=== PATIENT | female | born 1985 | race Caucasian/White ===

== ENCOUNTER → 2016-07-02 | Emergency (ER) | payer OTHER ==
[~2016-07-02] MED LIST: IBUP-232 PO
== END | disposition home or self-care (01) ==
LOC: HOBED 19:55 → H2EB 19:55 → UNDOADMIN 19:55 → EDSTATUS 20:19
DX: O26.93 Pregnancy related conditions, unspecified, third trimester (principal); Z3A.39 39 weeks gestation of pregnancy
CPT/HCPCS: 99283

== ENCOUNTER 2016-07-03 08:27 | Inpatient (IN) | payer OTHER ==
[2016-07-03] VITALS (138 sets, daily range): BP systolic 114–150; BP diastolic 64–96; PULSE 67–143; RESP 18–20; TEMP 98–98.4
[2016-07-03] MEDS ORDERED: LACTATED RINGER'S 1000 ML INJ 1,000 ML IV PRN (09:06)
[2016-07-03] MEDS ORDERED: LIDOCAINE HCL 1% 50 ML VIAL INFIL PRN (09:15)
[2016-07-03] MEDS ORDERED: ONDANSETRON HCL 4 MG/2 ML VIAL IV PRN (09:15)
[2016-07-03] MEDS ORDERED: LIDOCAINE HCL 1% 50 ML VIAL I-DERMAL PRN (09:15)
[2016-07-03] MEDS ORDERED: OXYTOCIN 30 UNITS-500ML PREMIX 500 ML IV SCH (09:15)
[2016-07-03] MEDS ORDERED: OXYTOCIN 30 UNITS-500ML PREMIX 500 ML IV ONE (09:15)
[2016-07-03] MEDS ORDERED: MINERAL OIL 10 ML VIAL TOPICAL PRN (09:15)
[2016-07-03] MEDS ORDERED: CITRIC ACID-SODIUM CITRATE LIQ 30 ML UDC PO SCH (09:15)
[2016-07-03] MEDS ORDERED: SODIUM CHLORID 0.9% 500 ML INJ 500 ML IV PRN (09:15)
[2016-07-03] MEDS ORDERED: SODIUM CHLOR 0.9% 1000 ML INJ 1,000 ML IV PRN (09:26)
[2016-07-03 09:36] LABS: AUTOMATED NEUTROPHIL # 8.5 TH/MM3 (1.8-7.7); BASOPHIL % 0.3 % (0.0-2.0); EOSINOPHIL # 0.2 TH/MM3 (0-0.4); EOSINOPHIL % 1.4 % (0.0-4.0); HEMATOCRIT 33.7 % (35.0-46.0); HEMO FLAGS DIFF FINAL; LYMPH % 20.5 % (9.0-44.0); LYMPHOCYTE # 2.5 TH/MM3 (1.0-4.8); MEAN CELL VOLUME 91.1 FL (80.0-100.0); MEAN CORPUSCULAR HEMOGLOBIN 31.3 PG (27.0-34.0); MEAN CORPUSCULAR HGB CONC 34.4 % (32.0-36.0); MONO % 7.2 % (0.0-8.0); NEUT % 70.6 % (16.0-70.0); PLATELET COUNT 212 TH/MM3 (150-450); RED CELL DISTRIBUTION WIDTH 12.9 % (11.6-17.2)
[2016-07-03 09:39] LABS: BACTERIA, URINE RARE /hpf; BLOOD, URINE NEG (NEG); COMMENT (UR) CULT NOT INDICATED; CULTURE IF INDICATED CULT NOT INDICATED; GLUCOSE,URINE NEG (NEG); KETONE, URINE NEG (NEG); MUCUS URINE FEW /lpf (OCC); NITRITE,URINE NEG (NEG); PH, URINE 5.5 (5.0-8.5); SQUAMOUS EPITHELIAL CELL URINE 1 /hpf (0-5); URINE COLOR LIGHT-YELLOW (YELLW/STRAW)
[2016-07-03] MEDS: LACTATED RINGER'S 1000 ML INJ 1,000 ML IV SCH (10:08)
[2016-07-03 10:12] LABS: ALKALINE PHOSPHATASE 117 U/L (45-117); ALT (GPT) 15 U/L (10-53); ANION GAP 10 MEQ/L (5-15); AST (GOT) 16 U/L (15-37); BLOOD UREA NITROGEN 10 MG/DL (7-18); CHLORIDE 105 MEQ/L (98-107); GLOMERULAR FILTRATION RATE 85 ML/MIN (>89); POTASSIUM 3.8 MEQ/L (3.5-5.1); SODIUM (NA) 138 MEQ/L (136-145); TOTAL BILIRUBIN ADULT 0.2 MG/DL (0.2-1.0)
--- NOTE | 2016-07-03 12:00 | PD.LABORPN ---
Subjective Subjective comfortable on the birthing ball clear fluid (AROM by Dr. Helm) Objective Vital Signs Vital Signs Date Time Temp Pulse Resp B/P Pulse Ox O2 Delivery O2 Flow Rate FiO2 07/03/16 11:42 78 145/96 07/03/16 11:40 75 07/03/16 11:35 77 07/03/16 11:30 69 07/03/16 11:20 75 07/03/16 11:10 71 07/03/16 11:07 98.1 07/03/16 11:05 71 07/03/16 11:04 71 140/92 07/03/16 11:00 69 07/03/16 10:55 67 07/03/16 10:50 67 07/03/16 10:45 95 07/03/16 10:35 69 07/03/16 10:30 71 07/03/16 10:25 68 07/03/16 10:20 75 07/03/16 10:15 78 07/03/16 10:10 71 07/03/16 10:09 73 132/90 07/03/16 10:05 143 07/03/16 10:00 71 07/03/16 09:55 73 07/03/16 09:50 79 07/03/16 09:45 74 07/03/16 09:40 76 07/03/16 09:35 80 07/03/16 09:32 78 128/87 07/03/16 09:30 83 07/03/16 09:25 83 07/03/16 09:24 98.4 07/03/16 09:20 78 07/03/16 09:15 78 07/03/16 09:10 86 07/03/16 09:05 87 07/03/16 09:00 85 Objective 80/3/-1 Category 1 EFW 7 1/2 pelvis clinically adequate Assessment/Plan Assessment and Plan continue being mobile until desires epidural anticipate Bernie Rowan MD Jul 03, 2016 12:00
--- NOTE | 2016-07-03 12:06 | HHI.HP ---
HPI Chief Complaint 39+ week IUP HIP mild Date Seen: Jul 03, 2016 Time Seen: 12:01 Travel History International Travel<30 Days: No Contact w/Intl Traveler<30Days: No Known Affected Area: No History of Present Illness HPI 30 yo mwf G1 Po at 39 2/7 weeks EGA with mildly elevated BPs of 140s/90s. No proteint today. trace yesterday No LAM, N , V , bluured vision or RUQT. GFM. PNC with HOGA beggining at 7 weeks. 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 Medical History: Denies Significant Hx Past Surgical History Surgical History: No Previous Surgery Family History Family History: Negative Social History Alcohol Use: No Tobacco Use: No Substance Abuse: No Allergies-Medications (Allergen,Severity, Reaction): Coded Allergies: No Known Allergies (Unverified , 07/03/16) Review of Systems General / Constitutional: No: Fever, Weight Gain, Chills, Other Physical Exam Vital Signs Date Time Temp Pulse Resp B/P Pulse Ox O2 Delivery O2 Flow Rate FiO2 07/03/16 11:42 78 145/96 07/03/16 11:40 75 07/03/16 11:35 77 07/03/16 11:30 69 07/03/16 11:20 75 07/03/16 11:10 71 07/03/16 11:07 98.1 07/03/16 11:05 71 07/03/16 11:04 71 140/92 07/03/16 11:00 69 07/03/16 10:55 67 07/03/16 10:50 67 07/03/16 10:45 95 07/03/16 10:35 69 07/03/16 10:30 71 07/03/16 10:25 68 07/03/16 10:20 75 07/03/16 10:15 78 07/03/16 10:10 71 07/03/16 10:09 73 132/90 07/03/16 10:05 143 07/03/16 10:00 71 07/03/16 09:55 73 07/03/16 09:50 79 07/03/16 09:45 74 07/03/16 09:40 76 07/03/16 09:35 80 07/03/16 09:32 78 128/87 07/03/16 09:30 83 07/03/16 09:25 83 07/03/16 09:24 98.4 07/03/16 09:20 78 07/03/16 09:15 78 07/03/16 09:10 86 07/03/16 09:05 87 07/03/16 09:00 85 Narrative GENERAL: Well-nourished, well-developed patient. SKIN: Warm and dry. HEAD: Normocephalic and atraumatic. EYES: No scleral icterus. No injection or drainage. ENT: No nasal drainage noted. Mucous membranes pink. Airway patent. NECK: Supple, trachea midline. No JVD. CARDIOVASCULAR: Regular rate and rhythm without murmurs, gallops, or rubs. RESPIRATORY: Breath sounds equal bilaterally. No accessory muscle use. BREASTS: Bilateral exam showed no masses , no retractions, no nipple discharge. ABDOMEN/GI: Abdomen soft, non-tender, bowel sounds present, no rebound, no guarding term fundus with vertex infant EFW 7 and 1/2 strip category one EXTREMITIES: No cyanosis or edema. BACK: Nontender without obvious deformity. No CVA tenderness. NEUROLOGICAL: Awake and alert. Motor and sensory grossly within normal limits. Five out of 5 muscle strength in all muscle groups. Normal speech. Data Data Orders Admit To Inpatient (07/03/16 ) Code Status (07/03/16 09:06) Vital Signs (Adult) .Per protocol (07/03/16 09:06) Activity Oob Ad Willow (07/03/16 09:06) ^ Heart (07/03/16 09:06) ^ Amnioinfusion (07/03/16 09:06) Urinary Catheter Management .ONCE (07/03/16 09:06) Diet Liquid (07/03/16 Breakfast) Lactated Ringer's 1000 Ml Inj (Lr 1000 M (07/03/16 09:06) Lactated Ringer's 1000 Ml Inj (Lr 1000 M (07/03/16 09:06) Sodium Chlorid 0.9% 500 Ml Inj (Ns 500 M (07/03/16 09:15) Sodium Chlor 0.9% 1000 Ml Inj (Ns 1000 M (07/03/16 09:26) Lidocaine 1% Inj (50 Ml) (Xylocaine 1% I (07/03/16 09:15) Citric Acid-Sodium Citrate Liq (Bicitra (07/03/16 09:15) Ondansetron Inj (Zofran Inj) (07/03/16 09:15) Fentanyl Inj (Fentanyl Inj) (07/03/16 09:15) Fentanyl Inj (Fentanyl Inj) (07/03/16 09:15) Complete Blood Count With Diff (07/03/16 09:06) Hold Clot (07/03/16 09:06) Abo/Rh Blood Type (07/03/16 09:06) Urinalysis - C+S If Indicated (07/03/16 09:06) Resp Oxygen Non Rebreathe Mask (07/03/16 ) ^ Epidural / Intrathecal Infus (07/03/16 09:06) Oxytocin 30 Units-500ml Premix (Pitocin (07/03/16 09:15) Lidocaine 1% Inj (50 Ml) (Xylocaine 1% I (07/03/16 09:15) Light Mineral Oil (Muri-Lube Oil) (07/03/16 09:15) Response To Medication .Post New Med Administration, Reaction (07/03/16 09:06) ^ Discontinue Medication (07/03/16 09:06) Oxytocin 30 Units-500ml Premix (Pitocin (07/03/16 09:15) Inpatient Certification (07/03/16 ) Specimen To Be Collected PRN (07/03/16 09:06) Comprehensive Metabolic Panel (07/03/16 09:06) Uric Acid (07/03/16 09:06) Labs Laboratory Tests Test 07/03/16 07/03/16 09:20 09:28 White Blood Count 12.0 Red Blood Count 3.70 Hemoglobin 11.6 Hematocrit 33.7 Mean Corpuscular Volume 91.1 Mean Corpuscular Hemoglobin 31.3 Mean Corpuscular Hemoglobin 34.4 Concent Red Cell Distribution Width 12.9 Platelet Count 212 Mean Platelet Volume 9.5 Neutrophils (%) (Auto) 70.6 Lymphocytes (%) (Auto) 20.5 Monocytes (%) (Auto) 7.2 Eosinophils (%) (Auto) 1.4 Basophils (%) (Auto) 0.3 Neutrophils # (Auto) 8.5 Lymphocytes # (Auto) 2.5 Monocytes # (Auto) 0.9 Eosinophils # (Auto) 0.2 Basophils # (Auto) 0.0 CBC Comment DIFF FINAL Differential Comment Sodium Level 138 Potassium Level 3.8 Chloride Level 105 Carbon Dioxide Level 23.0 Anion Gap 10 Blood Urea Nitrogen 10 Creatinine 0.79 Estimat Glomerular Filtration 85 Rate Random Glucose 92 Uric Acid 5.0 Calcium Level 9.0 Total Bilirubin 0.2 Aspartate Amino Transf 16 (AST/SGOT) Alanine Aminotransferase 15 (ALT/SGPT) Alkaline Phosphatase 117 Total Protein 6.6 Albumin 2.9 Blood Type A POSITIVE Blood Bank Comment Band and Hold Urine Color LIGHT-YELLOW Urine Turbidity CLEAR Urine pH 5.5 Urine Specific [place] 1.004 Urine Protein NEG Urine Glucose (UA) NEG Urine Ketones NEG Urine Occult Blood NEG Urine Nitrite NEG Urine Bilirubin NEG Urine Urobilinogen LESS THAN 2.0 Urine Leukocyte Esterase NEG Urine WBC 1 Urine Squamous Epithelial 1 Cells Urine Bacteria RARE Urine Mucus FEW Microscopic Urinalysis Comment CULT NOT INDICATED Assessment/Plan Assessment and Plan Amticipate Bernie Garcia MD Jul 03, 2016 12:06
[2016-07-03] MEDS ORDERED: MEASLES, MUMPS, RUBELLA VACCINE 0.5 ML VIAL SQ ONE (16:00)
[2016-07-03] MEDS ORDERED: DIPHTH/TETANUS/ACEL PERTUSSIS (BOOSTER) 0.5 ML VIAL/PFS IM ONE (16:00)
[2016-07-03] MEDS ORDERED: ePHEDrine/NS 25 MG/5 ML SYR ONE (16:41)
[2016-07-03] MEDS ORDERED: fentaNYL 2MCG-BUPIV 0.125% INJ 100 ML ONE (16:41)
[2016-07-03] MEDS ORDERED: fentaNYL 2MCG-BUPIV 0.125% 100 ML EPIDURAL SCH (19:15)
[2016-07-03] MEDS ORDERED: ePHEDrine/NS 25 MG/5 ML SYR IV PRN (19:15)
[2016-07-03] MEDS ORDERED: NO SYSTEM NARCOTICS XX PRN (19:15)
[2016-07-03] MEDS ORDERED: DO NOT ADMINISTER ANTICOAGULANTS XX PRN (19:15)
--- NOTE | 2016-07-03 21:42 | PD.OB.DELI ---
Anesthesia: Epidural Episiotomy: None Vaginal Delivery: Normal Presentation: Occiput anterior Nuchal Cord: None Delayed cord clamping (45 sec): Yes Infant: Female One Minute : 9 Five Minute : 9 Weight: 7 Infant Care: Suctioned, Spontaneous crying Placenta: Manual removal, Intact, Uterus explored +, 3 vessel cord Laceration: 1 deg Repair: Chromic Bernie Bai MD Jul 03, 2016 21:42
[2016-07-03] MEDS ORDERED: WITCH HAZEL 50%/GLYCERIN 12.5% 40 PAD JAR TOPICAL PRN (21:45)
[2016-07-03] MEDS ORDERED: ACETAMINOPHEN 325 MG TAB PO PRN (21:45)
[2016-07-03] MEDS ORDERED: ALUMINUM/MAGNESIUM/SIMETH 30 ML CUP PO PRN (21:45)
[2016-07-03] MEDS ORDERED: BENZOCAINE 20% TOPICAL SPRAY 60 ML CAN TOPICAL PRN (21:45)
[2016-07-03] MEDS ORDERED: ONDANSETRON ODT 4 MG TAB PO PRN (21:45)
[2016-07-03] MEDS ORDERED: SODIUM CHLORIDE 0.9% FLUSH 5 ML FLUSH IV PRN (21:45)
[2016-07-03] MEDS ORDERED: ZOLPIDEM TARTRATE 5 MG TAB PO PRN (21:45)
[2016-07-04 00:15] VITALS: BP 137/84; PULSE 82; RESP 18; TEMP 98
[2016-07-04 00:45] VITALS: BP 142/87; PULSE 67; RESP 16; TEMP 98
[2016-07-04] MEDS: IBUPROFEN 600 MG TAB PO PRN ×3 (00:56→16:18)
[2016-07-04 08:20] VITALS: BP 154/89; PULSE 62; RESP 18; TEMP 97.6
--- NOTE | 2016-07-04 09:55 | HHI.OB ---
Subjective Post Day: 1 Remarks doing well with nursing no issues Objective Vitals/I&O Vital Signs Date Time Temp Pulse Resp B/P Pulse Ox O2 Delivery O2 Flow Rate FiO2 07/04/16 08:20 154/89 07/04/16 08:20 97.6 62 18 07/04/16 00:45 98.0 16 07/04/16 00:45 67 142/87 07/04/16 00:15 98.0 07/04/16 00:15 82 18 137/84 07/03/16 23:50 109 150/64 07/03/16 22:30 20 07/03/16 22:15 20 07/03/16 21:45 18 07/03/16 21:30 18 07/03/16 21:20 111 07/03/16 21:15 113 07/03/16 21:00 88 07/03/16 21:00 93 128/77 07/03/16 20:48 18 07/03/16 20:45 18 07/03/16 20:30 102 07/03/16 20:30 100 128/82 07/03/16 20:25 98 07/03/16 20:20 101 07/03/16 20:15 113 07/03/16 20:05 18 07/03/16 20:00 91 07/03/16 20:00 104 131/95 07/03/16 19:32 98.0 07/03/16 19:30 94 128/89 07/03/16 19:30 96 07/03/16 19:08 18 07/03/16 19:05 92 07/03/16 19:00 89 134/79 07/03/16 19:00 83 07/03/16 18:45 87 07/03/16 18:40 81 07/03/16 18:35 82 07/03/16 18:31 18 07/03/16 18:30 78 07/03/16 18:30 80 135/93 07/03/16 18:25 79 07/03/16 18:20 77 07/03/16 18:15 78 137/84 07/03/16 18:15 76 07/03/16 18:10 71 07/03/16 18:05 83 07/03/16 18:05 81 128/76 07/03/16 18:05 72 07/03/16 18:00 77 07/03/16 18:00 81 07/03/16 17:55 76 07/03/16 17:55 89 138/87 07/03/16 17:55 80 07/03/16 17:50 83 07/03/16 17:50 68 07/03/16 17:50 80 133/78 07/03/16 17:48 18 07/03/16 17:45 81 114/77 07/03/16 17:45 81 07/03/16 17:45 78 07/03/16 17:40 83 07/03/16 17:40 80 127/83 07/03/16 17:40 79 07/03/16 17:36 98.4 07/03/16 17:35 79 133/76 07/03/16 17:35 81 07/03/16 17:35 74 07/03/16 17:31 86 127/75 07/03/16 17:30 85 07/03/16 17:30 83 07/03/16 17:25 89 07/03/16 17:21 88 119/76 07/03/16 17:20 76 07/03/16 17:15 85 07/03/16 17:10 87 07/03/16 17:10 75 07/03/16 17:10 73 137/84 07/03/16 17:05 74 07/03/16 16:35 83 07/03/16 16:30 80 07/03/16 16:25 89 07/03/16 16:15 79 07/03/16 16:10 81 07/03/16 16:07 76 134/88 07/03/16 16:05 78 18 07/03/16 15:55 84 07/03/16 15:50 87 07/03/16 15:45 92 07/03/16 15:40 84 07/03/16 15:35 81 07/03/16 15:30 86 07/03/16 15:25 86 07/03/16 15:20 91 07/03/16 15:15 81 07/03/16 15:11 100 131/90 07/03/16 15:10 76 07/03/16 15:10 98.2 18 07/03/16 15:05 67 07/03/16 15:00 70 07/03/16 14:50 87 07/03/16 14:45 91 07/03/16 14:40 87 07/03/16 14:35 88 07/03/16 14:30 83 07/03/16 14:25 79 07/03/16 14:20 90 07/03/16 14:20 78 141/89 07/03/16 14:17 18 07/03/16 14:15 81 07/03/16 14:10 85 07/03/16 14:05 79 07/03/16 14:00 77 07/03/16 13:55 77 07/03/16 13:50 73 07/03/16 13:40 88 07/03/16 13:35 87 07/03/16 13:30 86 07/03/16 13:25 80 07/03/16 13:20 84 07/03/16 13:15 82 07/03/16 13:10 77 07/03/16 13:05 71 07/03/16 13:03 73 129/89 07/03/16 13:03 98.2 18 07/03/16 12:50 74 07/03/16 12:45 82 07/03/16 12:40 72 07/03/16 12:35 82 07/03/16 12:30 81 07/03/16 12:25 86 07/03/16 12:20 79 07/03/16 12:15 133/89 07/03/16 12:15 18 07/03/16 12:15 75 07/03/16 12:15 75 07/03/16 11:55 83 07/03/16 11:50 72 07/03/16 11:45 70 07/03/16 11:42 78 145/96 07/03/16 11:40 75 07/03/16 11:35 77 07/03/16 11:30 69 07/03/16 11:20 75 07/03/16 11:15 18 07/03/16 11:10 71 07/03/16 11:07 98.1 07/03/16 11:05 71 07/03/16 11:04 71 140/92 07/03/16 11:00 69 07/03/16 10:55 67 07/03/16 10:50 67 07/03/16 10:45 95 07/03/16 10:35 69 07/03/16 10:30 71 07/03/16 10:25 68 07/03/16 10:20 75 07/03/16 10:15 78 07/03/16 10:10 71 07/03/16 10:09 73 132/90 07/03/16 10:05 143 07/03/16 10:00 71 07/03/16 09:55 73 Objective Remarks GENERAL: Well-nourished, well-developed patient. CARDIOVASCULAR: Regular rate and rhythm without murmurs, gallops, or rubs. RESPIRATORY: Breath sounds equal bilaterally. No accessory muscle use. ABDOMEN/GI: Abdomen soft, non-tender. Fundus: Firm, non-tender at umbilicus. GENITOURINARY: Light to moderate bleeding. EXTREMITIES: No cyanosis or edema, non-tender, without signs of DVT. Medications and IVs Current Medications Medications (Trade) Dose Ordered Sig/Anuradha Route Start Time Stop Time Status Last Admin Lactated Ringer's 1,000 ml @ 125 mls/hr Q8H IV 07/03/16 09:06 07/03/16 10:08 Lactated Ringer's 1,000 ml @ 3,000 mls/hr Q20M PRN IV 07/03/16 09:06 Sodium Chloride 500 ml @ 1,000 mls/hr ONCE PRN IV 07/03/16 09:15 07/05/16 09:14 (NS 1000 ml Inj) 1,000 ml @ 100 mls/hr Q10H PRN IV 07/03/16 09:26 (Zofran Inj) 4 mg Q6H PRN IV 07/03/16 09:15 07/03/16 19:25 (fentaNYL INJ) 50 mcg Q1H PRN IV PUSH 07/03/16 09:15 (fentaNYL INJ) 100 mcg Q1H PRN IV PUSH 07/03/16 09:15 Mineral Oil 10 ml 10 ml UNSCH PRN TOPICAL 07/03/16 09:15 (Pitocin 30 Units-NS 500 ml Premix) 500 ml @ 0 mls/hr TITRATE IV 07/03/16 09:15 07/03/16 10:10 Miscellaneous Information No systemic narcotics to be given except... UNSCH PRN XX 07/03/16 19:15 07/04/16 19:14 Miscellaneous Information DO NOT ADMINISTER ANY ANTICOAGUL... UNSCH PRN XX 07/03/16 19:15 07/04/16 19:14 (fentaNYL 2MCG-BUPIV 0.125% INJ) 100 ml @ 0 mls/hr TITRATE EPIDURAL 07/03/16 19:15 (ePHEDrine/NS 25 MG/5 ML SYR) 10 mg UNSCH PRN IV 07/03/16 19:15 07/04/16 19:14 (NS Flush) 2 ml BID IV 07/04/16 09:00 (NS Flush) 2 ml UNSCH PRN IV 07/03/16 21:45 (Tylenol) 650 mg Q4H PRN PO 07/03/16 21:45 (Motrin) 600 mg Q6H PRN PO 07/03/16 21:45 07/04/16 07:16 (Americaine 20% Top Spr) 1 spray Q4H PRN TOPICAL 07/03/16 21:45 (Tucks Pads) 1 applic QID PRN TOPICAL 07/03/16 21:45 (Ligia-Colace) 2 tab Q12H PRN PO 07/03/16 21:45 (Ambien) 5 mg HS PRN PO 07/03/16 21:45 (Mag-Al Plus Susp Liq) 15 ml Q8H PRN PO 07/03/16 21:45 (Zofran Odt) 4 mg Q6H PRN PO 07/03/16 21:45 Assessment/Plan Assessment and Plan Doing well after (induction for mild HIP) BPs remain minimally elevated watch for now anticipate discharge am Bernie Tillman MD Jul 04, 2016 09:55
[2016-07-04] MEDS: SODIUM CHLORIDE 0.9% FLUSH 5 ML FLUSH IV SCH (10:30)
[2016-07-04] MEDS: LACTATED RINGER'S 1000 ML INJ 1,000 ML IV SCH (17:06)
[2016-07-04] MEDS: DOCUSATE SODIUM 50 MG/SENNA 8.6 MG TAB PO PRN (18:19)
[2016-07-04 21:10] VITALS: BP 133/90; PULSE 64; RESP 16; TEMP 97.5
[2016-07-05] MEDS: IBUPROFEN 600 MG TAB PO PRN ×2 (00:02→06:27)
[2016-07-05] MEDS: DOCUSATE SODIUM 50 MG/SENNA 8.6 MG TAB PO PRN (08:32)
[2016-07-05 08:40] VITALS: BP 118/81; PULSE 88; RESP 18; TEMP 97.5
[2016-07-05] MEDS: SODIUM CHLORIDE 0.9% FLUSH 5 ML FLUSH IV SCH (09:00)
--- NOTE | 2016-07-05 11:03 | HHI.OB ---
Subjective Post Day: 2 Remarks doing well nursing no issues Objective Vitals/I&O Vital Signs Date Time Temp Pulse Resp B/P Pulse Ox O2 Delivery O2 Flow Rate FiO2 07/05/16 08:40 97.5 88 18 118/81 07/04/16 21:10 16 07/04/16 21:10 97.5 07/04/16 21:10 64 133/90 Objective Remarks GENERAL: Well-nourished, well-developed patient. CARDIOVASCULAR: Regular rate and rhythm without murmurs, gallops, or rubs. RESPIRATORY: Breath sounds equal bilaterally. No accessory muscle use. ABDOMEN/GI: Abdomen soft, non-tender. Fundus: Firm, non-tender at umbilicus. GENITOURINARY: Light to moderate bleeding. EXTREMITIES: No cyanosis or edema, non-tender, without signs of DVT. Medications and IVs Current Medications Medications (Trade) Dose Ordered Sig/Anuradha Route Start Time Stop Time Status Last Admin Lactated Ringer's 1,000 ml @ 125 mls/hr Q8H IV 07/03/16 09:06 07/03/16 10:08 Lactated Ringer's 1,000 ml @ 3,000 mls/hr Q20M PRN IV 07/03/16 09:06 (NS 1000 ml Inj) 1,000 ml @ 100 mls/hr Q10H PRN IV 07/03/16 09:26 (Zofran Inj) 4 mg Q6H PRN IV 07/03/16 09:15 07/03/16 19:25 (fentaNYL INJ) 50 mcg Q1H PRN IV PUSH 07/03/16 09:15 (fentaNYL INJ) 100 mcg Q1H PRN IV PUSH 07/03/16 09:15 Mineral Oil 10 ml 10 ml UNSCH PRN TOPICAL 07/03/16 09:15 Oxytocin 500 ml @ 0 mls/hr TITRATE IV 07/03/16 09:15 07/03/16 10:10 (fentaNYL 2MCG-BUPIV 0.125% INJ) 100 ml @ 0 mls/hr TITRATE EPIDURAL 07/03/16 19:15 (NS Flush) 2 ml BID IV 07/04/16 09:00 (NS Flush) 2 ml UNSCH PRN IV 07/03/16 21:45 (Tylenol) 650 mg Q4H PRN PO 07/03/16 21:45 (Motrin) 600 mg Q6H PRN PO 07/03/16 21:45 07/05/16 06:27 (Americaine 20% Top Spr) 1 spray Q4H PRN TOPICAL 07/03/16 21:45 (Tucks Pads) 1 applic QID PRN TOPICAL 07/03/16 21:45 (Ligia-Colace) 2 tab Q12H PRN PO 07/03/16 21:45 07/05/16 08:32 (Ambien) 5 mg HS PRN PO 07/03/16 21:45 (Mag-Al Plus Susp Liq) 15 ml Q8H PRN PO 07/03/16 21:45 (Zofran Odt) 4 mg Q6H PRN PO 07/03/16 21:45 Assessment/Plan Assessment and Plan Doing well after (induction for mild HIP) BPs remain minimally elevated watch for now RTO 1 week Bernie Rowan MD Jul 05, 2016 11:03
[2016-07-05] MEDS ORDERED: IBUP-232 PO (11:05)
--- NOTE | 2016-07-05 11:05 | HHI.DCPOC ---
Discharge Care Plan Report Symptoms to Your Doctor -Temperate above 100.5 degrees -Redness, of incision or excessive or foul smelling drainage -Unusual pain or calf pain -Increased vaginal bleeding -Painful or difficulty urinating -Feelings of extreme sadness or anxiety after 2 weeks Goals to Promote Your Health * To prevent worsening of your condition and complications * To maintain your health at the optimal level Directions to Meet Your Goals Take your medications as prescribed Follow your dietary instruction Follow activity as directed Ensure plenty of rest for recovery Drink fluids for hydration Keep your appointments as scheduled Take your immunizations and boosters as scheduled If your symptoms worsen call your PCP, if no PCP go to Urgent Care Center or Emergency Room Smoking is Dangerous to Your Health. Avoid second hand smoke Call the 24-hour crisis hotline for domestic abuse at Bernie Rowan MD Jul 05, 2016 11:05
== END 2016-07-05 12:07 | disposition home or self-care (01) | DRG 774 ==
LOC: H2EA 08:27 → H1EA 07-04 00:14
PROVIDERS: ADMIT Obstetrics & Gynecology; ATTEND Obstetrics & Gynecology
PROC: 00HU33Z Insertion of Infusion Device into Spinal Canal, Percutaneous Approach (ICD-10-PCS; principal; 2016-07-03)
PROC: 10E0XZZ Delivery of Products of Conception, External Approach (ICD-10-PCS; 2016-07-03)
PROC: 3E0R3CZ (ICD-10-PCS; 2016-07-03)
PROC: 0HQ9XZZ Repair Perineum Skin, External Approach (ICD-10-PCS; 2016-07-03)
DX: O10.92 Unspecified pre-existing hypertension complicating childbirth (principal); O24.429 Gestational diabetes mellitus in childbirth, unspecified control; Z37.0 Single live birth; O70.0 First degree perineal laceration during delivery; Z3A.39 39 weeks gestation of pregnancy
CPT/HCPCS: 59025; 80053; 81001; 84550; 85025; 86900; 86901; 99283; J2405; J2590; J7120